=== PATIENT | female | born 1990 | race Caucasian/White ===

== ENCOUNTER 2022-01-08 18:08 | Observation (INO) | payer OTHER, SELFPAY ==
[2022-01-08] VITALS (11 sets, daily range): BP systolic 102–117; BP diastolic 55–70; PULSE 70–89; RESP 16–19; TEMP 36.5–36.9; O2SAT 98–100; BMI 24.8
--- NOTE | 2022-01-08 | PATH_ITS ---
[facility] Accession Number: [id number] . 01 Material submitted: . product of conception - PRODUCTS OF CONCEPTION . 01 Clinical history: . BLEEDING VAGINALLY POSSIBLE MISCARRIAGE . 01 Diagnosis: Uterine Contents: Degenerated immature chorionic villi, decidua, and endometrium. Negative for changes diagnostic of gestational trophoblastic disease. MRV 01/12/2022 1919 Local . 01 Electronically signed: . Rhona Morris MD, Pathologist NPI- [id number] . 01 Gross description: . Received in formalin in a specimen container labeled with the patient's name and medical record number is an aggregate of multiple irregularly shaped blood clots and semi-translucent, slightly mucinous lay soft tissue fragments that measure 6.5 x 6.0 x 2.0 cm. No distinct parts are grossly identified. No distinct villi are grossly identified. The patient care representative sections are submitted in cassettes A1-A2. ([id number]) /MRV 01/11/2022 1020 Local . 01 Pathologist provided ICD-10: O03.9 . 01 CPT . 610609 Specimen Comment: A courtesy copy of this report has been sent to [facility] Performed at: [address] [facility] [address] [place] [address] [address] [facility], [place], [place] [id number] MD Robby Seo MD Phone: [phone]
--- NOTE | 2022-01-08 18:15 | DI.US.S_ITS ---
PROCEDURE: US PELVIC COMPLETE INDICATIONS: heavy vaginal bleeding; history of spontaneous October 31, 2021 with persistent vaginal bleeding. TECHNIQUE: Real-time scanning was performed of the pelvic organs, with image documentation. Additional endovaginal scanning was necessary due to incomplete visualization of the adnexal and endometrial structures by transabdominal scanning. COMPARISON: None. FINDINGS: Uterus: Uterus is anteverted and normal in size at 9.1 x 4.8 x 6.0 cm. The myometrium is homogeneous. The endometrium measures 19 mm combined thickness. Endometrium is heterogeneous in appearance with cystic appearing component within the endometrial cavity. There is mild associated internal vascularity in this region. Ovaries: The right ovary measures 3.8 x 2.0 x 3.6 cm. The left ovary measures 2.5 x 1.4 x 2.7 cm. The ovaries have a normal sonographic appearance. No adnexal masses are seen. Simple right ovarian cyst measuring 2.0 x 1.6 x 2.2 cm. No suspicious ovarian/adnexal masses. Other: No pathologic free abdominal or pelvic fluid. IMPRESSION: Thickened, heterogeneous endometrium with mildly vascular cystic component within the endometrial cavity possibly representing retained products of conception. Otherwise, unremarkable pelvic ultrasound. We strive to produce accurate, complete, and clear reports of imaging services. To assist us in improving patient care, this report was composed using standard report templates and voice recognition software. Therefore, it may contain abnormal punctuation, insertions and/or omissions. Occasional wrong-word or sound-alike substitutions may occur. Though we review the report and make efforts to correct it, we do recommend that the report be read carefully in proper context to recognize any text inaccuracies. Dictated by: Meir Madera M.D. on 01/08/2022 at 19:56 Approved by: Meir Madera M.D. on 01/08/2022 at 20:01
--- NOTE | 2022-01-08 18:15 | ED.FEMALEGU ---
HPI - Female Genitourinary General Chief complaint: Vaginal Bleeding Stated complaint: bleeding vaginally possible miscarriage Time Seen by Provider: 01/08/22 18:13 History of Present Illness HPI Narrative: 31-year-old female nonsmoker presents with her significant other and a chief complaint of heavy vaginal bleeding over the course of the day. She states she has been saturating a pad almost nonstop for at least the past few hours and feels dizzy, weak and lightheaded. She admits to some lower pelvic cramping. She denies any fever or chills nor nausea or vomiting. She states that she had a miscarriage in the end of October and they have been following her HCGs which most recently measured 9. She does not think she is actively . She denies any chest pain or shortness of breath. Related Data Home Medications Medication Instructions Recorded Confirmed Zoloft 50 mg PO DAILY 01/09/22 01/09/22 Allergies Allergy/AdvReac Type Severity Reaction Status Date / Time No Known Drug Allergies Allergy Verified 01/08/22 22:58 Review of Systems Review of Systems Narrative: GENERAL: See HPI HEENT: Denies sinus pain, ear pain, sore throat, difficulty swallowing, dizziness. RESPIRATORY: Denies dyspnea, cough, wheezing, hemoptysis, sputum. CARDIOVASCULAR: Denies chest pain, palpitations, orthopnea, edema, GASTROINTESTINAL: Denies nausea, vomiting, abdominal pain, diarrhea, constipation, melena. : See HPI MUSCULOSKELETAL: denies weakness, joint pain, or bony pain SKIN: Denies rash, skin lesions, or other NEUROLOGIC: Denies weakness, headache, numbness, change in speech, confusion, seizures, incoordination. PSYCHIATRIC: No concerning psychosocial issues. 12 point review of systems is negative except for those stated above Patient History Surgical History (Updated 01/08/22 @ 21:47 by Marjorie Horton MD) [place] teeth extracted Exam Narrative Exam Narrative: GENERAL: [31] year old patient appears stated age. Well-developed patient, in mild distress. HEAD: Atraumatic. Normocephalic. EYES: Pupils equal round and reactive. Extraocular motions intact. No scleral icterus. No injection or drainage. ENT: Nose without bleeding, purulent drainage. Throat without erythema, tonsillar hypertrophy or exudate. Airway patent. NECK: Trachea midline. Non tender CARDIOVASCULAR: Regular rate and rhythm without murmurs, gallops, or rubs. RESPIRATORY: Clear to auscultation. Breath sounds equal bilaterally. No wheezes, rales, or rhonchi. GASTROINTESTINAL: Abdomen soft, non-tender, nondistended. EXTREMITIES: No edema or joint tenderness. BACK: Nontender without deformity or crepitance. No flank tenderness. NEURO: AOx3. SKIN: No rash or erythema of visible areas Initial Vital Signs Initial Vital Signs: Vital Signs Temperature 98.5 F 01/08/22 18:25 Pulse Rate 83 01/08/22 18:25 Respiratory Rate 19 01/08/22 18:25 Blood Pressure 117/59 L 01/08/22 18:25 Pulse Oximetry 99 01/08/22 18:25 Oxygen Delivery Method 01/08/22 18:25 Course Course Course Narrative: discussed with containers sales representative OB, she will see patient at bedside, likely to OR for D&C Orders Ordered: ED Orders 01/08/22 18:15 US pelvic complete Stat 01/08/22 18:32 COVID19 -Nasal RAPID/Pre-Proc Stat 01/08/22 18:35 Complete Blood Count AUTO DIFF Stat Comprehensive Metabolic Panel Stat HCG Quantitative /Beta subunit Stat Type and Screen Stat Acetaminophen (Acetaminophen 325 Mg Tablet) 650 mg PO Q6H PRN PRN Reason: Mild Pain (1-3) Oxycodone HCl (Oxycodone Ir 5 Mg Tablet) 5 mg PO NOW PRN PRN Reason: Pain, Moderate (4-6) Sodium Chloride (Sodium Chloride 0.9% Flush) 10 ml IV BID JAQUI Discontinued Medications Hydrocodone Bitart/Acetaminophen (Hydrocodone/Acet 5/325 Tablet) 1 tab PO PACUNOW PRN PRN Reason: Mild or moderate pain Fentanyl (Fentanyl 100 Mcg/2 Ml Inj) 0 mcg IV Q5M PRN PRN Reason: Pain, Moderate (4-6) Hydromorphone HCl (Hydromorphone 2 Mg Inj) 0 mg IV Q5M PRN PRN Reason: Pain, Moderate (4-6) Lactated Ringer's (Lactated Ringers) 1,000 mls @ 42 mls/hr IV CONT JAQUI Ketorolac Tromethamine (Ketorolac 30 Mg/Ml Vial) 15 mg IV NOW ONE Stop: 01/08/22 23:12 Ketorolac Tromethamine (Ketorolac 30 Mg/Ml Vial) 15 mg IV NOW ONE Stop: 01/09/22 00:56 Last Admin: 01/09/22 01:35 Dose: 15 mg Documented By: MYRNA Lorazepam (Lorazepam 2 Mg/Ml Inj) 0.25 mg IV NOW PRN PRN Reason: Anxiety Metoclopramide HCl (Metoclopramide 10 Mg/2 Ml Inj) 10 mg IV NOW PRN PRN Reason: Nausea And Vomiting Ondansetron HCl (Ondansetron 4 Mg/2 Ml Inj) 4 mg IV NOW PRN PRN Reason: Nausea And Vomiting Vital Signs Vital signs: Vital Signs - 8 hr 01/08/22 18:25 01/08/22 18:39 01/08/22 18:40 Temperature 98.5 F Pulse Rate 83 89 Respiratory Rate 19 Blood Pressure 117/59 L 102/62 Pulse Oximetry 99 100 Oxygen Delivery Method Room Air 01/08/22 18:40 01/08/22 19:00 01/08/22 19:00 Temperature Pulse Rate 75 80 Respiratory Rate Blood Pressure 110/68 Pulse Oximetry 100 100 Oxygen Delivery Method 01/08/22 19:30 01/08/22 19:30 01/08/22 20:00 Temperature Pulse Rate 84 71 Respiratory Rate Blood Pressure 104/55 L Pulse Oximetry 100 100 Oxygen Delivery Method MDM - Female Genitourinary Lab Data Result diagrams: 01/08/22 18:35 01/08/22 18:35 Labs: Lab Results 01/08/22 01/08/22 01/08/22 Range/Units 18:32 18:35 18:35 WBC 8.4 (4.5-11.0) X10^3/uL RBC 4.33 (4.0-5.2) X10^6/uL Hgb 12.9 (12.0-16.0) g/dL Hct 36.8 (36-46) % MCV 85.0 (80-100) fL MCH 29.9 (26-34) PG MCHC 35.2 (30-36) % RDW 12.6 (11.6-14.8) % Plt Count 199 (150-400) X10^3/uL Neut % (Auto) 59.8 (50-75) % Lymph % (Auto) 29.7 (25-40) % Emery % (Auto) 7.4 (3-14) % Eos % (Auto) 2.4 (2-4) % Baso % (Auto) 0.7 (0-2) % Neut # (Auto) 5000 (1211-4142) /uL Lymph # (Auto) 2500 (6415-2195) /uL Emery # (Auto) 600 (0-900) /uL Eos # (Auto) 200 (0-450) /uL Baso # (Auto) 100 (0-100) /uL Sodium 139 (137-145) mmol/L Potassium 3.5 (3.4-5.1) mmol/L Chloride 104 (98-107) mmol/L Carbon Dioxide 27 (22-32) mmol/L BUN 11 (7-17) mg/dL Creatinine 0.65 (0.52-1.04) mg/dL Estimated GFR > 60 (>60) mL/min BUN/Creatinine Ratio 16.9 (6-22) Glucose 118 H (70-100) mg/dL Calcium 8.3 L (8.4-10.2) mg/dL Total Bilirubin 0.4 (0.2-1.3) mg/dL AST 31 (14-36) IU/L ALT 20 (<35) IU/L Alkaline Phosphatase 66 (38-126) U/L Total Protein 7.2 (6.3-8.2) g/dL Albumin 4.4 (3.5-5.0) g/dL Globulin 2.8 (1.7-4.1) g/dL Albumin/Globulin Ratio 1.6 (1.0-2.8) HCG, Quant 3.8 mIU/mL SARS-CoV-2 (PCR) Negative (Negative) Blood Type Antibody Screen 01/08/22 Range/Units 18:35 WBC (4.5-11.0) X10^3/uL RBC (4.0-5.2) X10^6/uL Hgb (12.0-16.0) g/dL Hct (36-46) % MCV (80-100) fL MCH (26-34) PG MCHC (30-36) % RDW (11.6-14.8) % Plt Count (150-400) X10^3/uL Neut % (Auto) (50-75) % Lymph % (Auto) (25-40) % Emery % (Auto) (3-14) % Eos % (Auto) (2-4) % Baso % (Auto) (0-2) % Neut # (Auto) (5595-3316) /uL Lymph # (Auto) (8048-0087) /uL Emery # (Auto) (0-900) /uL Eos # (Auto) (0-450) /uL Baso # (Auto) (0-100) /uL Sodium (137-145) mmol/L Potassium (3.4-5.1) mmol/L Chloride (98-107) mmol/L Carbon Dioxide (22-32) mmol/L BUN (7-17) mg/dL Creatinine (0.52-1.04) mg/dL Estimated GFR (>60) mL/min BUN/Creatinine Ratio (6-22) Glucose (70-100) mg/dL Calcium (8.4-10.2) mg/dL Total Bilirubin (0.2-1.3) mg/dL AST (14-36) IU/L ALT (<35) IU/L Alkaline Phosphatase (38-126) U/L Total Protein (6.3-8.2) g/dL Albumin (3.5-5.0) g/dL Globulin (1.7-4.1) g/dL Albumin/Globulin Ratio (1.0-2.8) HCG, Quant mIU/mL SARS-CoV-2 (PCR) (Negative) Blood Type B Positive Antibody Screen Negative Imaging Data US - [employer] SERVICE: Radiologist's Impression: [place] [phone] Ultrasound Report Signed Patient: Niurka Bernal MR#: [id number] : 1990 Acct:[id number] Age/Sex: 31 / F Date of Service: 01/08/22 Loc: ED Accession Number: [id number] ?? Procedure: US pelvic complete Ordering Provider: Jose Salgado D.O. PROCEDURE:? US PELVIC COMPLETE ? INDICATIONS:? heavy vaginal bleeding; history of spontaneous October 31, 2021 with persistent vaginal bleeding. ? TECHNIQUE:? Real-time scanning was performed of the pelvic organs, with image documentation.? Additional endovaginal scanning was necessary due to incomplete visualization of the adnexal and endometrial structures by transabdominal scanning.? ? COMPARISON:? None. ? FINDINGS:? ?? Uterus:? Uterus is anteverted and normal in size at 9.1 x 4.8 x 6.0 cm. The myometrium is homogeneous. ? The endometrium measures 19 mm combined thickness.? Endometrium is heterogeneous in appearance with cystic appearing component within the endometrial cavity.? There is mild associated internal vascularity in this region. Ovaries:? The right ovary measures 3.8 x 2.0 x 3.6 cm. The left ovary measures 2.5 x 1.4 x 2.7 cm. The ovaries have a normal sonographic appearance. No adnexal masses are seen.? Simple right ovarian cyst measuring 2.0 x 1.6 x 2.2 cm.? No suspicious ovarian/adnexal masses.? ? Other:? No pathologic free abdominal or pelvic fluid. ? IMPRESSION:? Thickened, heterogeneous endometrium with mildly vascular cystic component within the endometrial cavity possibly representing retained products of conception.? Otherwise, unremarkable pelvic ultrasound. ? ? We strive to produce accurate, complete, and clear reports of imaging services. To assist us in improving patient care, this report was composed using standard report templates and voice recognition software. Therefore, it may contain abnormal punctuation, insertions and/or omissions. Occasional wrong-word or sound-alike substitutions may occur. Though we review the report and make efforts to correct it, we do recommend that the report be read carefully in proper context to recognize any text inaccuracies. ? ? Dictated by: Meir Madera M.D. on 01/08/2022 at 19:56 ? ? Approved by: Meir Madera M.D. on 01/08/2022 at 20:01 ? Discharge Plan Departure Patient Disposition: Admitted to Surgery Clinical Impression: Incomplete , Vaginal bleeding Admit Date/Time: 01/08/22 20:41 Admit Provider: Marjorie Horton
--- NOTE | 2022-01-08 18:47 | PC.NURSE ---
Pt reports she had a miscarriage at the end of October, has had intermittent bleeding/spotting since then. She states she has had no follow-up ultrasound. Pt reports that she woke this morning covered in bright red blood, sheets/bedding soaked. Reports she's passing large clots and soaking multiple pads/hour. Denies dizziness/lightheadeness. reports mild cramping. States she would accept a blood transfusion if necessary.
[2022-01-08 18:49] LABS: Add Manual Diff / Slide Review NO; Basophils Absolute Auto 100 /uL (0-100); Basophils Percent Auto 0.7 % (0-2); Eosinophils Absolute Auto 200 /uL (0-450); Eosinophils Percent Auto 2.4 % (2-4); Hematocrit 36.8 % (36-46); Hemoglobin 12.9 g/dL (12.0-16.0); Lymphocytes Absolute Auto 2500 /uL (1100-4500); Lymphocytes Percent Auto 29.7 % (25-40); Mean Corpuscular HGB Conc 35.2 % (30-36); Mean Corpuscular Hemoglobin 29.9 PG (26-34); Monocytes Absolute Auto 600 /uL (0-900); Monocytes Percent Auto 7.4 % (3-14); Neutrophils Absolute Auto 5000 /uL (1500-7000); Neutrophils Percent Auto 59.8 % (50-75); Platelet Count 199 X10^3/uL (150-400); Red Blood Cell Count 4.33 X10^6/uL (4.0-5.2); Red Cell Distribution Width 12.6 % (11.6-14.8); White Blood Cell Count 8.4 X10^3/uL (4.5-11.0)
[2022-01-08 18:56] LABS: COVID19 -Nasal RAPID Negative (Negative)
[2022-01-08 19:07] LABS: Alanine Aminotransferase 20 IU/L (<35); Albumin 4.4 g/dL (3.5-5.0); Albumin Globulin Ratio 1.6 (1.0-2.8); Alkaline Phosphatase 66 U/L (38-126); Aspartate Aminotransferase 31 IU/L (14-36); BUN Creatinine Ratio 16.9 (6-22); Bilirubin Total 0.4 mg/dL (0.2-1.3); Blood Urea Nitrogen 11 mg/dL (7-17); Calcium 8.3 mg/dL (8.4-10.2); Carbon Dioxide 27 mmol/L (22-32); Chloride 104 mmol/L (98-107); Estimated Glomerular Filt Rate > 60 mL/min (>60); Globulin 2.8 g/dL (1.7-4.1); Glucose 118 mg/dL (70-100); HEMOLYSIS < 15 (0-50); Potassium 3.5 mmol/L (3.4-5.1); Sodium 139 mmol/L (137-145); Total Protein 7.2 g/dL (6.3-8.2)
[2022-01-08 19:23] LABS: HCG Quantitative /Beta subunit 3.8 mIU/mL
--- NOTE | 2022-01-08 21:46 | PM.GYNHP.1 ---
History of Present Illness History of Present Illness Reason for admission: vaginal bleeding (very heavy ongoing bleeding, hemorrhage. Recent spontaneous Ab) Narrative: Niurka Bernal is a 31 year old female who has been followed for a miscarriage elsewhere presented to the ED reporting excessive bleeding, going through 3-4 pads per hour. She reports followed for a miscarriage in October with sequential ultrasound and then HCG. Ultrasound never showed a pole. She had heavy bleeding with clots in October and felt likely SAB at that time better hCG was followed down. Reports it is was dropping gradually from 1500 down to 9 a few days ago. She started bleeding lightly then today very heavy soaking through several pads in an hour. At lighten in the afternoon but then returned soaking through over 3-4 pads per hour. In the ED she was noted to I the soaking through pads on her legs and soaking onto the bed. [facility] Surgical History (Updated 01/08/22 @ 21:47 by Marjorei Horton MD) [place] teeth extracted Social History Smoking Status: Never smoker Exam Vital Signs (past 8 hours): - 01/08/22 18:25 01/08/22 18:39 01/08/22 18:40 Temperature 98.5 F Pulse Rate 83 89 Respiratory Rate 19 Blood Pressure 117/59 L 102/62 Pulse Oximetry 99 100 Oxygen Delivery Method Room Air 01/08/22 18:40 01/08/22 19:00 01/08/22 19:00 Temperature Pulse Rate 75 80 Respiratory Rate Blood Pressure 110/68 Pulse Oximetry 100 100 Oxygen Delivery Method 01/08/22 19:30 01/08/22 19:30 01/08/22 20:00 Temperature Pulse Rate 84 71 Respiratory Rate Blood Pressure 104/55 L Pulse Oximetry 100 100 Oxygen Delivery Method Oxygen Delivery Method Room Air Narrative Exam Narrative: General: Well-appearing female in no acute distress Abdomen: Soft, nontender, nondistended Extremities: No edema : Recent change peripad soaked with blood. Objective Imaging US - abdomen: Radiologist's impression: [address] [address] Ultrasound Report Signed Patient: Niurka Bernal MR#: [id number] : 1990 Acct:[id number] Age/Sex: 31 / F Date of Service: 01/08/22 Loc: ED Accession Number: [id number] ?? Procedure: US pelvic complete Ordering Provider: Jose Salgado D.O. PROCEDURE:? US PELVIC COMPLETE ? INDICATIONS:? heavy vaginal bleeding; history of spontaneous October 31, 2021 with persistent vaginal bleeding. ? TECHNIQUE:? Real-time scanning was performed of the pelvic organs, with image documentation.? Additional endovaginal scanning was necessary due to incomplete visualization of the adnexal and endometrial structures by transabdominal scanning.? ? COMPARISON:? None. ? FINDINGS:? ?? Uterus:? Uterus is anteverted and normal in size at 9.1 x 4.8 x 6.0 cm. The myometrium is homogeneous. ? The endometrium measures 19 mm combined thickness.? Endometrium is heterogeneous in appearance with cystic appearing component within the endometrial cavity.? There is mild associated internal vascularity in this region. Ovaries:? The right ovary measures 3.8 x 2.0 x 3.6 cm. The left ovary measures 2.5 x 1.4 x 2.7 cm. The ovaries have a normal sonographic appearance. No adnexal masses are seen.? Simple right ovarian cyst measuring 2.0 x 1.6 x 2.2 cm.? No suspicious ovarian/adnexal masses.? ? Other:? No pathologic free abdominal or pelvic fluid. ? IMPRESSION:? Thickened, heterogeneous endometrium with mildly vascular cystic component within the endometrial cavity possibly representing retained products of conception.? Otherwise, unremarkable pelvic ultrasound. ? ? We strive to produce accurate, complete, and clear reports of imaging services. To assist us in improving patient care, this report was composed using standard report templates and voice recognition software. Therefore, it may contain abnormal punctuation, insertions and/or omissions. Occasional wrong-word or sound-alike substitutions may occur. Though we review the report and make efforts to correct it, we do recommend that the report be read carefully in proper context to recognize any text inaccuracies. ? ? Dictated by: Meir Madera M.D. on 01/08/2022 at 19:56 ? ? Approved by: Meir Madera M.D. on 01/08/2022 at 20:01 ? Labs Result Diagrams: 01/08/22 18:35 01/08/22 18:35 Labs: Laboratory Results - last 24 hr 01/08/22 01/08/22 01/08/22 18:32 18:35 18:35 WBC 8.4 RBC 4.33 Hgb 12.9 Hct 36.8 MCV 85.0 MCH 29.9 MCHC 35.2 RDW 12.6 Plt Count 199 Neut % (Auto) 59.8 Lymph % (Auto) 29.7 [place] % (Auto) 7.4 Eos % (Auto) 2.4 Baso % (Auto) 0.7 Neut # (Auto) 5000 Lymph # (Auto) 2500 [place] # (Auto) 600 Eos # (Auto) 200 Baso # (Auto) 100 Sodium 139 Potassium 3.5 Chloride 104 Carbon Dioxide 27 BUN 11 Creatinine 0.65 Estimated GFR > 60 BUN/Creatinine Ratio 16.9 Glucose 118 H Calcium 8.3 L Total Bilirubin 0.4 AST 31 ALT 20 Alkaline Phosphatase 66 Total Protein 7.2 Albumin 4.4 Globulin 2.8 Albumin/Globulin Ratio 1.6 HCG, Quant 3.8 SARS-CoV-2 (PCR) Negative Blood Type Antibody Screen 01/08/22 18:35 WBC RBC Hgb Hct MCV MCH MCHC RDW Plt Count Neut % (Auto) Lymph % (Auto) [place] % (Auto) Eos % (Auto) Baso % (Auto) Neut # (Auto) Lymph # (Auto) [place] # (Auto) Eos # (Auto) Baso # (Auto) Sodium Potassium Chloride Carbon Dioxide BUN Creatinine Estimated GFR BUN/Creatinine Ratio Glucose Calcium Total Bilirubin AST ALT Alkaline Phosphatase Total Protein Albumin Globulin Albumin/Globulin Ratio HCG, Quant SARS-CoV-2 (PCR) Blood Type B Positive Antibody Screen Negative Assessment & Plan Assessment and plan (1) Vaginal hemorrhage: Status: Acute Plan Discussed with the patient HCG returned as negative, thus 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 However given amount of bleeding and hemorrhage, removing any tissue from the uterus with D&C can help stop the bleeding. And if possibly retained products of conception, though again unlikely with the HCG level, then D&C would remove this tissue and help stop the bleeding. Bleeding starting to lighten some now in the ED. 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 Option for treatment with progesterone medication to help stop the bleeding and further evaluation in the future if heavy bleeding recurred. Discussed there is heterogeneous endometrium and an area vascularity that if this is not may be a small polyp and if abnormal bleeding occurred in the future can then may need eventual evaluation with hysteroscopy. Option otherwise to proceed with D&C today to help lighten the bleeding with the excessiveness with removing clot and the thickened heterogeneous endometrium. If somehow there is any retained tissue then we removed that as well. Discussed possible hysteroscopy, if blood clears enough and I am able to inspect if there is any polyp or other endometrial mass, then could removed for her to help the bleeding. She opted to proceed with D and C given the excessive bleeding, hemorrhage on presentation to the ED. Reviewed procedure dilatation and curettage, possible hysteroscopy with possible polyp removal or removal of any other visible endometrial mass. Surgical risks discussed including bleeding, infection, uterine perforation with risk of injury to adjacent organs including bowel bladder, risk of intrauterine scar tissue formation, Asherman syndrome with risk of infertility. Verbal and written consent obtained. Consent obtained to blood transfusion if needed. Time Spent With Patient Critical Care time: I spent a total of [] minutes of critical care time on this patient's care today; this time is exclusive of procedural time.
--- NOTE | 2022-01-08 21:53 | SUR.OPER ---
Lithotomy on padded OR bed, head on pillow, arms secured on padded arm boards at <90 degrees abduction. Legs secured in padded yellow fins stirrups.
--- NOTE | 2022-01-08 22:05 | PM.PREOP ---
Pre-operative Note COVID-19 COVID-19 status: Negative Result date/Date tested (Pos, Neg/Pending): 01/08/22 Criteria for continued procedure: Deterioration of the patient's condition or overall health Interval Note History & Physical reviewed/Exam performed by Physician: Yes Changes to H&P: No
--- NOTE | 2022-01-08 23:16 | P.OP_ITS ---
Operative Date/Time/Diagnoses Date of procedure: 01/08/22 Time of procedure: 22:45 Pre-op diagnosis: Vaginal hemorrhage. Recent spontaneous miscarriage with HCG negative. Heterogenous cystic endometrium, with focal vascularity. Thickened cystic heterogeneous endometrium with vascularity on ultrasound. Possible menstrual clots and endometrial polyp, not related, versus possible retained products of conception. Post-op diagnosis: same (With tissue appearing consistent with probable retained products of conception) Procedure & Clinicians Procedure: Suction dilatation and curettage Same procedure as scheduled: Yes Indications: 31-year-old G1 P 0010 female presented to the ED with severely heavy vaginal bleeding. She was being followed elsewhere with serial HCG is after what appeared to be a spontaneous Ab. Reports episode of heavy bleeding in October that was felt to be a miscarriage. Had been followed by ultrasound as well and felt to be miscarriage. No pole ever seen. After the heavier bleeding she was followed with serial HCGs which gradually decreased, patient reports somewhat slowly at 1 point. HCG decreased from 1500 to 9 a few days ago. She had been having some intermittent spotting persisting since October as well. 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 Bleeding subsequently ease but later in the day returned again as very heavy, soaking 3-4 pads per hour or more, gushing through her pants and severe cramping. She presented to the ED. patient with heavy bleeding on to the bed in the ED. Bleeding had eased on my arrival with being within her pad only but pad full after recent change. Patient reported when she stands a gushing would now happen. Ultrasound showed thickened heterogeneous endometrium with mildly vascular cystic component, possibly representing retained products of conception. Ovaries were normal bilaterally. There was a simple 2 cm right ovarian cyst noted. Surgeon: Marjorie Horton Click Yes if Unassisted: Yes Anesthesia Type: General Operative Notes Findings: Bimanual examination revealed a normal size uterus which appeared retroverted on my exam. Ultrasound had showed anteversion. Cervical os was mildly dilated, with #8 dilator passing with ease. Closure Type: not applicable Specimen(s): other (Endometrial suction curettings, probable retained products of conception) Estimated Blood Loss (mL): 100 Blood products transfused: none Procedure in detail: After being properly identified she was transferred to the operating room. After an adequate level of general anesthesia was obtained she was placed in [facility] in the dorsal lithotomy position. She was prepped and draped in routine sterile fashion. Bimanual examination was performed. Her bladder was sterilely drained with a rubber catheter. An open-sided speculum was placed and the cervix was grasped with a single-tooth tenaculum. The cervical os appeared mildly open. The cervix only needed minimal dilatation. A #8 dilator passed with ease and minimal dilatation was needed to pass #9 dilator. The uterus sounded to 8 cm. A number 8 suction curette was placed. Suction curettage was performed with several passes for a moderate amount of tissue. Tissue appeared consistent with products of conception. After no further tissue was obtained, a metal curette was placed and gentle curettage confirmed there to be no further apparent products of conception. The suction curette was placed a last time some residual blood and clot was removed. The tenaculum was removed. Some silver nitrate was needed to the right tenaculum site, then there was good hemostasis at the tenaculum sites and good hemostasis overall. She only had some light bleeding through the cervical os as would be expected. Hysteroscopy was not performed as tissue did appear consistent with products of conception and was removed. The procedure was ended. She tolerated the procedure well and went to recovery room stable condition. Complications: none Post-operative Condition: stable Disposition: observation Plan for aftercare: Observe several hours overnight. If bleeding remains normal, then discharge in the morning.
[2022-01-09] VITALS: BP 114/68; PULSE 66; RESP 15; TEMP 36.4; O2SAT 99
[2022-01-09 00:30] VITALS: BP 113/77; PULSE 62; RESP 16; TEMP 36.2; O2SAT 99
[2022-01-09 01:30] VITALS: BP 95/57; PULSE 83; RESP 15; TEMP 36.6; O2SAT 98
[2022-01-09] MEDS: KETOROLAC 30 MG/ML VIAL 15 MG IV (01:35)
[2022-01-09] MEDS: SODIUM CHLORIDE 0.9% FLUSH 10 ML IV (01:45)
[2022-01-09 02:30] VITALS: BP 99/47; PULSE 67; RESP 16; TEMP 36.5; O2SAT 98
[2022-01-09 06:40] VITALS: BP 91/52; PULSE 69; RESP 16; TEMP 36.3; O2SAT 99
[2022-01-09 07:28] LABS: Add Manual Diff / Slide Review NO; Basophils Absolute Auto 0 /uL (0-100); Basophils Percent Auto 0.3 % (0-2); Eosinophils Absolute Auto 0 /uL (0-450); Hematocrit 33.5 % (36-46); Hemoglobin 11.4 g/dL (12.0-16.0); Lymphocytes Absolute Auto 900 /uL (1100-4500); Lymphocytes Percent Auto 12.4 % (25-40); Mean Corpuscular HGB Conc 34.2 % (30-36); Mean Corpuscular Hemoglobin 29.5 PG (26-34); Mean Corpuscular Volume 86.3 fL (80-100); Monocytes Absolute Auto 200 /uL (0-900); Monocytes Percent Auto 2.2 % (3-14); Neutrophils Absolute Auto 6000 /uL (1500-7000); Neutrophils Percent Auto 85.1 % (50-75); Platelet Count 188 X10^3/uL (150-400); Red Blood Cell Count 3.88 X10^6/uL (4.0-5.2); Red Cell Distribution Width 12.6 % (11.6-14.8)
[2022-01-09 10:00] VITALS: BP 94/53; PULSE 81; RESP 17; TEMP 36.7; O2SAT 97
--- NOTE | 2022-01-09 10:46 | P.PN_ITS ---
Subjective Subjective Date Patient Seen: 01/09/22 Time Patient Seen: 10:46 Exam Vital Signs (past 8 hours): - 01/09/22 06:40 Temperature 97.4 F L Pulse Rate 69 Respiratory Rate 16 Blood Pressure 91/52 L Pulse Oximetry 99 Oxygen Flow Rate 0 Oxygen Delivery Method Room Air Oxygen Flow Rate 0 Narrative Exam Narrative: General: Well-appearing female, appears comfortable. In no acute distress Abdomen: Soft, nontender, nondistended Extremities: Negative for edema Objective Labs Result Diagrams: 01/09/22 07:00 01/08/22 18:35 Labs: Laboratory Results - last 24 hr 01/08/22 01/08/22 01/08/22 18:32 18:35 18:35 WBC 8.4 RBC 4.33 Hgb 12.9 Hct 36.8 MCV 85.0 MCH 29.9 MCHC 35.2 RDW 12.6 Plt Count 199 Neut % (Auto) 59.8 Lymph % (Auto) 29.7 [place] % (Auto) 7.4 Eos % (Auto) 2.4 Baso % (Auto) 0.7 Neut # (Auto) 5000 Lymph # (Auto) 2500 [place] # (Auto) 600 Eos # (Auto) 200 Baso # (Auto) 100 Sodium 139 Potassium 3.5 Chloride 104 Carbon Dioxide 27 BUN 11 Creatinine 0.65 Estimated GFR > 60 BUN/Creatinine Ratio 16.9 Glucose 118 H Calcium 8.3 L Total Bilirubin 0.4 AST 31 ALT 20 Alkaline Phosphatase 66 Total Protein 7.2 Albumin 4.4 Globulin 2.8 Albumin/Globulin Ratio 1.6 HCG, Quant 3.8 SARS-CoV-2 (PCR) Negative Blood Type Antibody Screen 01/08/22 01/09/22 18:35 07:00 WBC 7.0 RBC 3.88 L Hgb 11.4 L Hct 33.5 L MCV 86.3 MCH 29.5 MCHC 34.2 RDW 12.6 Plt Count 188 Neut % (Auto) 85.1 H D Lymph % (Auto) 12.4 L [place] % (Auto) 2.2 L Eos % (Auto) 0.0 L Baso % (Auto) 0.3 Neut # (Auto) 6000 Lymph # (Auto) 900 L [place] # (Auto) 200 Eos # (Auto) 0 Baso # (Auto) 0 Sodium Potassium Chloride Carbon Dioxide BUN Creatinine Estimated GFR BUN/Creatinine Ratio Glucose Calcium Total Bilirubin AST ALT Alkaline Phosphatase Total Protein Albumin Globulin Albumin/Globulin Ratio HCG, Quant SARS-CoV-2 (PCR) Blood Type B Positive Antibody Screen Negative PFSH Surgical History (Updated 01/08/22 @ 21:47 by Marjorie Horton MD) [place] teeth extracted Social History household members: spouse Smoking Status: Never smoker alcohol intake: current Assessment & Plan Post-op Postoperative Procedures: Procedures Operation Date: 01/08/22 22:00 Actual Procedure Side Surgeon p Dilation and Curettage-Suction Not Applicable Marjorie Horton MD Postoperative day: 1 Postoperative status: doing well Postoperative plan: routine post-op care and discharge Postoperative plan narrative: Discharge home. Postop expectations reviewed and postoperative instructions. Follow-up in 1-2 weeks. Discussed can see me in the office and will give her the contact information. However since she lives 90 to 120 minutes away she will likely follow up with the physician in her area who was following her loss. I will contact her with the results of her pathology when the results return and check on how she is doing postop as well. Time Spent With Patient Time with patient: 15-24 minutes Quality VTE Deep Vein Thrombosis/Pulmonary Embolism Present on Admission: No
--- NOTE | 2022-01-09 11:05 | PM.DS.1 ---
History of Present Illness History of Present Illness Date Patient Seen: 01/09/22 Time Patient Seen: 11:05 Date of Onset of Symptoms: 01/08/22 Chief complaint: bleeding vaginally possible miscarriage Narrative: [address] [address] Operative Note Patient: Niurka Bernal MR#: [id number] : 1990 Acct:[id number] Age/Sex: 31 / F ? Date of Service: 01/08/22 31-year-old G1 P 0010 female presented to the ED with severely heavy vaginal bleeding.? She was being followed elsewhere with serial HCG is after what appeared to be a spontaneous Ab.? Reports episode of heavy bleeding in October that was felt to be a miscarriage.? Had been followed by ultrasound as well and felt to be miscarriage.? No pole ever seen.? After the heavier bleeding she was followed with serial HCGs which gradually decreased, patient reports somewhat slowly at one point.? HCG decreased from 1500 to 9 a few days ago.? She had been having some intermittent spotting persisting since October as well, then had some heavier bleeding in December that she felt was likely her menses though her HCG was still positive by report. This morning she awoke to heavy bleeding that had soaked her sheets and severe cramping.? Bleeding initially eased but later in the day returned again as very heavy, soaking 3-4 pads per hour or more, gushing through her pants and severe cramping.? She presented to the ED and patient with heavy bleeding in the ED, bleeding onto the sheets. Bleeding had eased on my arrival with being within her pad only but pad full after recent change.? Patient reported when she stands a gushing would now happen. Ultrasound showed thickened heterogeneous endometrium with mildly vascular cystic component, possibly representing retained products of conception.? Ovaries were normal bilaterally.? There was a simple 2 cm right ovarian cyst noted. Serum HCG quant in ED negative. 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 However with only recent positive HCG, also possible retained products of conception. Recommend with unclear etiology and due to extreme heavy bleeding, only ease now with being off her feet proceeding with dilatation and curettage. Discussed if tissue does not appear to be consistent with products of conception then could proceed with hysteroscopy to evaluate for any possible endometrial polyp or other endometrial mass with the heterogeneous endometrium with some focal vascularity on ultrasound. She consented to dilatation curettage. She underwent suction dilatation and curettage. Tissue did appear consistent with retained products of conception. No additional procedure was thus performed, no hysteroscopy. Her bleeding was minimal after the suction dilatation and curettage in the OR. She was transferred to the medical floor to observe overnight to be sure her bleeding remained normal and do delayed hour at night. She did well overnight with only having scant blood on her peripad over 12 hours. She reported only mild cramping overnight, controlled with medication. She remained afebrile. She was tolerating a normal diet. Hemoglobin was rechecked in the morning and had decreased 1.5 g from the bleeding but she only had mild anemia at hemoglobin 11.5. She was ambulating without problems. No lightheadedness. Status at Discharge Cognitive/behavioral status at discharge: oriented Functional status at discharge: independent ambulation Overall status at discharge: patient is back to baseline Time Spent with Patient Time spent: Less than 30 minutes Exam Vital Signs (past 8 hours): - 01/09/22 06:40 01/09/22 10:00 Temperature 97.4 F L 98.0 F Pulse Rate 69 81 Respiratory Rate 16 17 Blood Pressure 91/52 L 94/53 L Pulse Oximetry 99 97 Oxygen Flow Rate 0 0 Oxygen Delivery Method Room Air Oxygen Flow Rate 0 Const General: cooperative and healthy appearing GI Inspection: normal to inspection and non-distended Palpation: soft and No tender Extrem General: no pedal edema Objective Labs Result Diagrams: 01/09/22 07:00 01/08/22 18:35 Labs: Laboratory Results - last 24 hr 01/08/22 01/08/22 01/08/22 18:32 18:35 18:35 WBC 8.4 RBC 4.33 Hgb 12.9 Hct 36.8 MCV 85.0 MCH 29.9 MCHC 35.2 RDW 12.6 Plt Count 199 Neut % (Auto) 59.8 Lymph % (Auto) 29.7 [place] % (Auto) 7.4 Eos % (Auto) 2.4 Baso % (Auto) 0.7 Neut # (Auto) 5000 Lymph # (Auto) 2500 [place] # (Auto) 600 Eos # (Auto) 200 Baso # (Auto) 100 Sodium 139 Potassium 3.5 Chloride 104 Carbon Dioxide 27 BUN 11 Creatinine 0.65 Estimated GFR > 60 BUN/Creatinine Ratio 16.9 Glucose 118 H Calcium 8.3 L Total Bilirubin 0.4 AST 31 ALT 20 Alkaline Phosphatase 66 Total Protein 7.2 Albumin 4.4 Globulin 2.8 Albumin/Globulin Ratio 1.6 HCG, Quant 3.8 SARS-CoV-2 (PCR) Negative Blood Type Antibody Screen 01/08/22 01/09/22 18:35 07:00 WBC 7.0 RBC 3.88 L Hgb 11.4 L Hct 33.5 L MCV 86.3 MCH 29.5 MCHC 34.2 RDW 12.6 Plt Count 188 Neut % (Auto) 85.1 H D Lymph % (Auto) 12.4 L [place] % (Auto) 2.2 L Eos % (Auto) 0.0 L Baso % (Auto) 0.3 Neut # (Auto) 6000 Lymph # (Auto) 900 L [place] # (Auto) 200 Eos # (Auto) 0 Baso # (Auto) 0 Sodium Potassium Chloride Carbon Dioxide BUN Creatinine Estimated GFR BUN/Creatinine Ratio Glucose Calcium Total Bilirubin AST ALT Alkaline Phosphatase Total Protein Albumin Globulin Albumin/Globulin Ratio HCG, Quant SARS-CoV-2 (PCR) Blood Type B Positive Antibody Screen Negative [facility] Surgical History (Updated 01/08/22 @ 21:47 by Marjorie Horton MD) [place] teeth extracted Social History household members: spouse Smoking Status: Never smoker alcohol intake: current Discharge Assessment & Plan Assessment and Plan Plan of Treatment: She was doing well postoperatively and was discharged for follow-up with me in 1-2 weeks or with her provider near [place] who was following this for her. I will contact her with results of the pathology when it returns, as she indicated she will likely follow up with her usual provider. Phone number confirmed She was advised if she felt fatigued at home with the mild anemia, that she could take [id number] iron for 1 month. Discharge Plan Discharge Plan Patient Disposition: Home Provider Discharge Comment: S/p suction D&C for retained products of conception, vaginal hemorrhage after miscarriage. Discharge orders & Medications Prescriptions: Continued Zoloft 25 mg tablet 50 mg PO DAILY Rx Instructions: Take 2 tabs by mouth daily for depression Medication counseling provided by Pharmacist: No Follow up/Referrals: Marjorie Horton MD [Physician] - (schedule follow-up appointment in 1-2 weeks with me or if he prefer with your provider who was following you for the miscarriage. I will call you with pathology results. If you do not hear within 2 weeks please call the phone number listed above to review) Discharge Health Status Multidrug resistant organism: No MDRO Diet/Activity/Treatments Diet: Regular Activity: No driving or operating machinery for 24 hours. Nothing in the vagina, no tampons or intercourse for 2 weeks. Skin/Wound/Dressing Care Report to your healthcare provider any signs of infection, such as:: chills, fever and increased pain Other wound treatment: Call or go to the ER for heavy vaginal bleeding, soaking 1 pad per hour more frequent. Visit Report/Discharge Packet Instructions: DI for a Dilation and Curettage Discharge Data Attending Provider: Marjorie Horton Quality VTE Deep Vein Thrombosis/Pulmonary Embolism Present on Admission: No
--- NOTE | 2022-01-09 11:42 | PC.NURSE ---
Discharge Note Patient A&O, VSS, RA, no complaints of pain/discomfort. Discharge packet reviewed with patient, all questions/concerns addressed. PIV removed. Patient sent with home supplies. Patient able to dress self and pack all belongings. Patient taken down via wheelchair to [facility].
--- NOTE | 2022-01-09 12:01 | CM.DANOTE ---
Patient is a 31 yo female who was admitted on 01/08/22 for Vaginal Bleeding. Pt has [employer] for insurance and her PCP is not listed. EMR was reviewed. Per OBGYN, pt with a hx of miscarriages and was admitted for D&C surgical intervention to reduce bleeding and hx of recent miscarriage in October. Per RN, pt with concepcion cath and independent in room and no concerns at this time and anticipate likely d/c home later today. Pt resides in [place] with her family and has had outpt follow up for prior miscarriages and medical care. No anticipated needs for d/c as pt is active and independent at baseline and has supportive family. Plan: SW to follow for plan of d/c home later today if medically stable and able to void independently and any further identified needs. DANIEL Johnson Discharge Planning/Care Management CM Discharge Assessment Start: 01/09/22 09:46 Freq: Status: Discharge Protocol: Document 01/09/22 09:46 BF (Rec: 01/09/22 12:00 [id number]) Discharge Planning Assessment Assigned Family Law Paralegal DANIEL Vidales DPOA/Assigned Designee Name spouse Blas informally Advance Directives? No Advance Directives on File No History Provided By Patient,Medical Record Has Patient been admitted in last 30 No days? Prior Living Arrangements House Household Members spouse Type of transporation used prior to Drives own vehicle admit Independent with ADL's Yes Is patient alert and oriented? Yes Barriers to Discharge No Discharge Plan Home Transportation Arrangement Spouse to transport at d/c Referrals Initiated None needed Whiteboard Updated in Patient Room with Yes name and ext. # of Family Law Paralegal Review Status In Process Please Provide Date Initial DC 01/09/22 Assessment Was Performed Next Review Type Continued Stay Review
== END 2022-01-09 11:30 | disposition home or self-care (01) ==
LOC: ED 18:49 → AC 20:43
PROVIDERS: Admitting Provider Obstetrics & Gynecology; Emergency Provider Emergency Medicine; Referring Provider Obstetrics & Gynecology; Visit Provider Obstetrics & Gynecology
PROC: (CPT 58120; principal; 2022-01-08 22:00)
DX: O03.9 Complete or unspecified spontaneous abortion without complication (principal); Z20.822 Contact with and (suspected) exposure to COVID-19; N83.291 Other ovarian cyst, right side
CPT/HCPCS: 59820; 36415; 76830; 76856; 80053; 84702; 85025; 86850; 86900; 86901; 87635; 96374; 99284; C9803; G0378; J1100; J1885; J2250; J2405; J2704; J3010